=== PATIENT | female | born 1990 ===

== ENCOUNTER → 2021-08-20 | Outpatient (CLI) | payer BC ==
[2021-08-20 08:16] VITALS: RESP 18
--- NOTE | 2021-08-20 08:28 | P.PAINCN ---
History of Present Illness - Reason for Consult Consult date: 08/20/21 - History of Present Illness This is 31 years old female with 10 month history of severe low back pain, started without any initiating event, reported that the pain is constant and radiates from the low back area to the lower extremity bilaterally, but is more prominent on the right side, the pain associated with numbness and tingling sensation, he feels occasional weakness in her lower extremities , is able to ambulate freely, patient done physical therapy and home exercises without any benefit, he tried medication management and stated and oral steroids without any significant benefit, she denies any fever or night sweats she denies any change in the bowel movements or urination, intensity of the pain interfere with her quality of life and activity of daily livings. Past Medical History Past Medical History: Diabetes Mellitus Additional Past Medical History / Comment(s): STATES QUESTIONABLE DIABETES- RECENT STEROIDS AND STARTED ON METFORMIN., LOWER BACK PAIN RADIATING DOWN BOTH LEGS., PT HAS IUD (NO MENSTRUAL PERIOD IN YEARS)., STATES SHE HAD COVID AND THE PAIN STARTED AFTER THAT. History of Any Multi-Drug Resistant Organisms: None Reported Past Surgical History: Tonsillectomy Additional Past Surgical History / Comment(s): left foot fx with metal plate Past Anesthesia/Blood Transfusion Reactions: No Reported Reaction Smoking Status: Never smoker - Past Family History Father Family Medical History: Cancer Additional Family Medical History / Comment(s): pancreatic cancer Medications and Allergies Home Medications Medication Instructions Recorded Confirmed Type Ibuprofen 800 mg PO DIRECTED PRN 08/14/21 08/14/21 History metFORMIN HCL [Glucophage] 500 mg PO DAILY 08/14/21 08/14/21 History Allergies Allergy/AdvReac Type Severity Reaction Status Date / Time No Known Allergies Allergy Verified 08/14/21 15:54 Physical Exam Vitals: Vital Signs Resp 08/20/21 08:11 18 Physical Examinations : -Constitutiona : Cooperative , not in acute distress . -HEENT : nech : supple , no Lymphadenopathy , normal thyroid size . : eyes : no ptosis , no icterus, no photophobia . - neurologic : Cranial nerve II to XII intact , no focal neurological deffecit . -psychatric : alert , oriented X 3 , appropriate affect , intact judgment and insight . -Lymphatic : no Lymphadenopathy . - musculoskeltal : Lumber spine moter stegnth lower extremities ,thigh and legs 5/5 Right side , 5/5 Left side deep tendon reflexes : normal Knee Jerk , normal ankle Jerk lumber facet Loading Test =positive Right , positive Left Range of motion of the lumbar spine Flexion 30 degrees, extension 10 degrees strait leg raising test = positive at 30 degree the right side, and is positive on the left side at 45 Fabere test= positive Right , and positive LT . tenderness over the Sacroiliac joint on the Right , and Left sides . Total trigger point identified in the lumbar paraspinal muscles bilaterally Results Comments: MRI of the lumbar spine= lumbar bulging disc disease L4 5 and L5-S1 and lumbar spondylosis facet arthropathy Assessment and Plan Plan: Assessment and plan= lumbar radiculopathy. Lumbar Degenerative disc disease. Myofascial pain syndrome and lumbar area. Lumbar spondylosis with lumbar facet arthropathy. She tried physical therapy without any benefit and she tried home exercises without any benefit, he tried medication management without any significant improvement, including NSAID and oral steroid. She could benefit from lumbar epidural steroid injection at the L5 level in the right paramedian approach. She could benefit from trigger point injections and lumbar paraspinal muscles (multiple ) Time with Patient: Greater than 30 PQRS Measure Charge Sheet Measure #226: Tobacco Use: Screen & Cessation Intervention: Pt not a tobacco user Measure #111: Pneumonia Vaccination: Pneumococcal vaccine NOT administered or previously given Measure #47: Advance Care Plan: Advance care planning discussed & documented, pt chose/unable to give Measure #412: Opioid Treatment Agreement: No documentation of signed opioid treatment agreement Measure #408: Opioid Therapy Follow-up Evaluation: Patient had NO f/u eval minimum every 3 months during opioid therapy Measure #317: Preventitive Care & Scrn High Bld Press & F/U: Normal blood pressure, f/u not required Measure #128: Body Mass Index (BMI) Screening & Follow-up: BMI documented ABOVE normal parameters - f/u documented Measure #131: Pain Assessment & Follow-up: Pain positive & plan documented, Follow-up scheduled Measure #431: Unhealthy Alcohol Use Preventative Care & Scrn: Patient not identified as an unhealthy alcohol user Mode of Arrival: Ambulatory - Pain Location Lower Back Non-Pharmacological Interventions: Heat, Ice PQRS Narrative: Pain Intensity [Lower Back] 6 Scale Used Numeric (1 - 10) Hx Alcohol Use (MH) No Home Medications: Ambulatory Orders Ibuprofen 800 mg PO DIRECTED PRN 08/14/21 metFORMIN HCL [Glucophage] 500 mg PO DAILY 08/14/21
[2021-08-20 08:29] VITALS: BP 123/85; PULSE 86; TEMP 97.9
== END ==
LOC: PNWHC3 07:58
PROVIDERS: ATTEND Specialist
DX: M51.16 Intervertebral disc disorders with radiculopathy, lumbar region (principal); M47.26 Other spondylosis with radiculopathy, lumbar region; M79.18 Myalgia, other site; E11.9 Type 2 diabetes mellitus without complications; Z79.84 Long term (current) use of oral hypoglycemic drugs
CPT/HCPCS: 99202

== ENCOUNTER 2021-10-01 07:28 | Day surgery (SDC) | payer BC ==
[2021-09-29 14:16] VITALS: BMI 40.1
[2021-10-01 07:50] VITALS: TEMP 98
[2021-10-01] MEDS ORDERED: LACTATED RINGERS 1,000 ML IV ONE (08:02)
[2021-10-01] MEDS ORDERED: LIDOCAINE 1% (10MG/ML) FOR IV START INTRADERMA ONE (08:03)
[2021-10-01] MEDS ORDERED: ROPIVACAINE 5MG/ML 20ML VIAL ONE (08:05)
[2021-10-01] MEDS ORDERED: IOPAMIDOL M200 10 ML VIAL ONE (08:05)
[2021-10-01] MEDS ORDERED: methylPREDNISolone ACETATE 40 MG/ML 1 ML VIAL ONE (08:05)
[2021-10-01] MEDS ORDERED: MIDAZOLAM 2 MG/2 ML VIAL ONE (08:05)
[2021-10-01] MEDS ORDERED: .fentaNYL (PF) 50 MCG/ML AMP ONE (08:05)
[2021-10-01 08:09] LABS: Glucose,Whole Blood 195 mg/dL (75-99)
--- NOTE | 2021-10-01 08:25 | P.PCN ---
Date of Procedure: 10/01/21 Description of Procedure: Procedure: 1. L4-L5 Epidural steroid injection under fluoroscopic guidance #1 out of 3, 2. Lumbar epidurogram PREOPERATIVE DIAGNOSIS: Lumbar degenerative disc disease, and Lumbar radiculopathy. POSTOPERATIVE DIAGNOSIS: Lumbar degenerative disc disease, and Lumbar radiculop athy. SURGEON: Makayla Oliver ANESTHESIA: Local with 1% lidocaine, and IV sedation : Versed, and fentanyl EBL: None. Specimen removed: None Fluoroscopic image: saved to electronic medical records PROCEDURE INDICATION: The patient had history of Lumbar degenerative disc disease and Lumbar radiculopathy. Failed to conservative therapy. Presented for epidural steroid injection. PROCEDURE DESCRIPTION: The patient was seen and identified in the preoperative area. Risks, benefits, complications, and alternatives were discussed with the patient. The patient agreed to proceed with the procedure and signed the consent. IV was started, and vital signs were stable. Patient was taken to the procedure area, and time out was completed. The patient was placed in the prone position on procedure table and a pillow was placed under the abdomen to reduce lumbar lordosis. The lumbosacral area was prepped and draped in the usual sterile fashion. Critical pause was taken. Vital signs were closely monitored during the procedure. Using anterior-posterior fluoroscopy, the L4-L5 interlaminar space was identified, and skin and deeper tissues were localized with 1% lidocaine. Using anterior-posterior fluoroscopy, lateral fluoroscopy, and [id number] technique, a 20 gauge 3.5 Tuohy epidural needle entered the epidural space. After negative aspiration of CSF and blood with no paresthesias, 1 ml of Gtzool889 contrast dye was injected and an excellent epidurogram was seen. Again after negative aspiration of CSF and blood with no paresthesias, 10 mL of block solution was injected into the epidural space. Block solution contained 40 mg of Depo-Medrol, and 9 mL of preservative-free normal saline. Needle was withdrawn intact, skin was cleansed, and bandages were applied. COMPLICATIONS: None. ------- Pre and postop diagnosis: Myofascial pain syndrome Procedure: Trigger point injections X 4 Muscle group bilateral lumbar paraspinal Surgeon: Makayla Oliver Anesthesia: Versed, and fentanyl Complications: None Estimated blood loss: None Specimen removed: None Procedure indications: Patient had a history of myofascial pain syndrome. Patient tried conservative therapy. Came here for intervention procedure for better pain relief. Procedure description: After the lumbar epidural steroid injection, A total number of 4 - trigger point area was marked with a sterile marker. After ChloraPrep used to clean the area. Critical pause was taken. Using 25-gauge 1- 1/2 inch needle Needle entered in each market site 3 mL of block solution injected at each level. The block solution containing 12 ml of 0.5% preservative-free ropivacaine with Depo-Medrol 40 MG. Needle removed intact skin cleaned and Band-Aid applied. Patient tolerated the procedure well. DISPOSITION / PLANS: The patient was placed in a supine position and transferred to the recovery area in a stable condition for observation. Patient was discharged from the recovery room after meeting discharge criteria. Home discharge instructions given to the patient by the staff. The patient was reexamined prior to discharge. The patient will schedule a follow up in the clinic in 4 weeks.
--- NOTE | 2021-10-01 08:28 | FL ---
EXAMINATION TYPE: FL guided pain mgmt statistic DATE OF EXAM: 10/01/2021 CLINICAL HISTORY: Low back pain. TECHNIQUE: Fluoroscopy. COMPARISON: None. FINDINGS: Fluoroscopic guidance was provided during pain relief procedure performed by Dr. Oliver. A total of 5 seconds of fluoroscopic time was utilized during the procedure and 2 spot images are ac quired. Images acquired shows needle localization at the level of the lumbosacral junction. IMPRESSION: As Above.
[2021-10-01] MEDS ORDERED: LACTATED RINGERS 1,000 ML IV SCH (08:30)
[2021-10-01] MEDS ORDERED: IV FLUID CONTINUATION 700 ML IV ONE (08:31)
[2021-10-01 08:34] VITALS: RESP 16
[2021-10-01 08:41] VITALS: BP 106/73; PULSE 92
== END 2021-10-01 09:00 | disposition home or self-care (01) ==
LOC: ORPAIN 07:28
DX: M51.16 Intervertebral disc disorders with radiculopathy, lumbar region (principal); Z79.84 Long term (current) use of oral hypoglycemic drugs; E11.9 Type 2 diabetes mellitus without complications
CPT/HCPCS: 81025; 20553; 62323; J2250; J1030; J3010; Q9966; 99152

== ENCOUNTER → 2021-10-26 | Outpatient (CLI) | payer BC ==
[2021-10-26 11:20] VITALS: BP 129/88; PULSE 96; RESP 18; TEMP 98.9
--- NOTE | 2021-10-26 19:58 | P.PN ---
Subjective Progress Note Date: 10/26/21 This is follow up visit for this 31 years old female with history of severe low back pain, started without any initiating event, reported that the pain is constant and radiates from the low back area to the lower extremity bilaterally, but is more prominent on the right side, the pain associated with numbness and tingling sensation, he feels occasional weakness in her lower extremities , is able to ambulate freely, patient done physical therapy and home exercises without any benefit, he tried medication management and stated and oral steroids without any significant benefit, she denies any fever or night sweats she denies any change in the bowel movements or urination, intensity of the pain interfere with her quality of life and activity of daily livings. She is day 2. Lumbar radiculopathy and lumbar degenerative disc disease and myofascial pain syndrome lumbar area and lumbar spondylosis with lumbar facet arthropathy, recently we did a trigger point injection lumbar paraspinal muscles and in the same time- limited lumbar epidural steroid injection, patient reported that her low back pa in improved significantly for a few weeks and currently she is complaining of the same pain in the low back area, and also she is having some tingling sensation in the left hand, numbness and tingling sensation in the left hand radiated from the wrist to the hand she denies any motor or sensory deficit in the upper or lower extremity Physical Examinations : -Constitutiona : Cooperative , not in acute distress . -HEENT : nech : supple , no Lymphadenopathy , normal thyroid size . : eyes : no ptosis , no icterus, no photophobia . - neurologic : Cranial nerve II to XII intact , no focal neurological deffecit . -psychatric : alert , oriented X 3 , appropriate affect , intact judgment and insight . -Lymphatic : no Lymphadenopathy . - musculoskeltal : Normal motor strength in the upper extremity, normal sensation Lumber spine moter stegnth lower extremities ,thigh and legs 5/5 Right side , 5/5 Left side deep tendon reflexes : normal Knee Jerk , normal ankle Jerk lumber facet Loading Test =positive Right , positive Left Range of motion of the lumbar spine Flexion 30 degrees, extension 10 degrees strait leg raising test = positive at 30 degree the right side, and is positive on the left side at 45 Fabere test= positive Right , and positive LT . tenderness over the Sacroiliac joint on the Right , and Left sides . Total trigger point identified in the lumbar paraspinal muscles bilaterally Results MRI of the lumbar spine= lumbar bulging disc disease L4 5 and L5-S1 and lumbar spondylosis facet arthropathy Assessment and plan= lumbar radiculopathy. Lumbar Degenerative disc disease. Myofascial pain syndrome and lumbar area. Lumbar spondylosis with lumbar facet arthropathy. Left upper extremity carpal tunnel syndrome She tried physical therapy without any benefit and she tried home exercises without any benefit, he tried medication management without any significant improvement, including NSAID and oral steroid. She could benefit from lumbar epidural steroid injection at the L4-5 level in the right paramedian approach. She could benefit from trigger point injections and lumbar paraspinal muscles (multiple ) Patient will be referred to orthopedic surgeon for evaluation for possible carpal tunnel surgery on the left upper extremity Time with Patient: less than 30 PQRS Measure Charge Sheet Measure #226: Tobacco Use: Screen & Cessation Intervention: Pt not a tobacco user Measure #111: Pneumonia Vaccination: Pneumococcal vaccine NOT administered or previously given Measure #47: Advance Care Plan: Advance care planning discussed & documented, pt chose/unable to give Measure #412: Opioid Treatment Agreement: No documentation of signed opioid treatment agreement Measure #408: Opioid Therapy Follow-up Evaluation: Patient had NO f/u eval minimum every 3 months during opioid therapy Measure #317: Preventitive Care & Scrn High Bld Press & F/U: Normal blood pressure, f/u not required Measure #128: Body Mass Index (BMI) Screening & Follow-up: BMI documented ABOVE normal parameters - f/u documented Measure #131: Pain Assessment & Follow-up: Pain positive & plan documented, Follow-up scheduled Measure #431: Unhealthy Alcohol Use Preventative Care & Scrn: Patient not identified as an unhealthy alcohol user Mode of Arrival: Ambulatory Objective - Vital Signs Vital signs: Vital Signs Temp 98.9 F 10/26/21 10:54 Pulse 96 10/26/21 10:54 Resp 18 10/26/21 10:54 BP 129/88 10/26/21 10:54 Pulse Ox 97 10/26/21 10:54
== END ==
LOC: PNWHC3 09:59
PROVIDERS: ATTEND Specialist
DX: M51.16 Intervertebral disc disorders with radiculopathy, lumbar region (principal); M79.18 Myalgia, other site; M47.26 Other spondylosis with radiculopathy, lumbar region; G56.02 Carpal tunnel syndrome, left upper limb
CPT/HCPCS: 99211

== ENCOUNTER 2022-01-07 07:26 | Day surgery (SDC) | payer BC ==
[2022-01-06 11:35] VITALS: BMI 43.0
[2022-01-07] MEDS ORDERED: LIDOCAINE 1% (10MG/ML) FOR IV START INTRADERMA PRN (07:55)
[2022-01-07] MEDS ORDERED: LACTATED RINGERS 1,000 ML IV SCH (07:55)
[2022-01-07 08:03] VITALS: RESP 16; TEMP 97.5
[2022-01-07] MEDS ORDERED: LIDOCAINE 1% (10MG/ML) FOR IV START INTRADERMA ONE (08:10)
[2022-01-07] MEDS ORDERED: MIDAZOLAM 2 MG/2 ML VIAL ONE (08:12)
[2022-01-07] MEDS ORDERED: IOPAMIDOL M200 10 ML VIAL ONE (08:12)
[2022-01-07] MEDS ORDERED: ROPIVACAINE 5MG/ML 20ML VIAL ONE (08:12)
[2022-01-07] MEDS ORDERED: methylPREDNISolone ACETATE 80 MG/ML 1 ML VIAL ONE (08:12)
[2022-01-07] MEDS ORDERED: fentaNYL (PF) 50 MCG/ML 2 ML AMP ONE (08:12)
--- NOTE | 2022-01-07 08:33 | P.PCN ---
Date of Procedure: 01/07/22 Procedure(s) Performed: PREOPERATIVE DIAGNOSIS: 1- Lumbar Degenerative Disc Diseases 2-Lumbar spondylosis with Facet arthropathy without myelopathy. 3-lumbar radiculopathy. 4-myofascial pain syndrome lumbar area. POSTOPERATIVE DIAGNOSIS: Same as preop diagnosis. PROCEDURE 1. Lumbar epidural steroid injection under fluoroscopic guidance at the L5-S1 level. (Fluoroscopy imaging was available in radiology department) 2. Lumbar epidurogram. 3.trigger point injection lumbar paraspinal muscles 4 on the right side lumbar paraspinal muscles and 3 on the left side lumbar paraspinal muscles(total 7 trigger points injected) ANESTHESIA: Local with 1% lidocaine 3 ml and , moderate sedation with intravenous Versed 2 mg ,and fentanyle 100 Mcg EBL: Minimal PROCEDURE INDICATION: The patient with low back pain and radiculitis symptoms unresponsive to conservative treatment. Fluoroscopy was used to optimize visualization of the needle placement and to maximize safety. PROCEDURE DESCRIPTION / TECHNIQUE: The patient was seen and identified in the preoperative area. Risks, benefits, complications including but not limited to infections ,bleeding ,allergic reaction to the medications ,nerve damage and not complete pain releife , and alternatives were discussed with the patient. The patient agreed to proceed with the procedure and signed the consent. IV was started, and vital signs were stable. Patient was taken to the OR and time out was completed. The patient was placed in the prone position on procedure table and a pillow was placed under the abdomen to reduce lumbar lordosis. The lumbosacral area was prepped and draped in the usual sterile fashion.ere closely monitored during the procedure. Conscious sedation was used during the procedure to decrease patients anxiety. Vital signs was monitered during the entire procedure. Using anterior-posterior fluoroscopy, the L5-S1 interlaminar space was identified and the skin over this site was marked and then infiltrated with 1% lidocaine subcutaneously. Subsequently, a 18-gauge 6 inches long ,Tuohy epidural needle was inserted and advanced toward the epidural space using the ``Loss of resistance technique and guided by AP and lateral fluoroscopy. The correct needle position in the epidural space was verified with the injection of 2 mL of the water soluble contrast dye Isovue 200 contrast and observing an excellent epidurogram with the epidural spread of the dye, after negative aspiration for blood and CSF and in the absence of paresthesias. Again after negative aspiration, a 6 ml mixture containing 80 mg of Depo-medrol , and 2 ml of preservative free Normal Saline, and 2 ml of preservative free lidocaine 1% solution was injected and a washout of epidurogram was seen. Needle was withdrawn intac. Half and that the trigger point injection done sterile technique using 25-gauge Quincke-type spinal needle (3-1/2 inch long used) total of 4 and injected in the lumbar paraspinal muscles 4 on the right side lumbar paraspinal muscles, and 3 on the left side lumbar paraspinal muscles, each trigger point injected with ropivacaine 0.5% 2 mL, injection done after negative aspiration under was no paresthesia during the injection, and tolerated the procedure well without any complications COMPLICATIONS: None DISPOSITION / PLANS: The patient was placed in a supine position and transferred to the recovery area in a stable condition for observation. There was no evidence of lower extremity motor or sensory deficit after the procedure. Patient was discharged from the recovery room after meeting discharge criteria. Home discharge instructions were given to the patient by the staff. The patient was reexamined prior to discharge. The patient will schedule a follow up in the clinic in 2-4 weeks.
[2022-01-07] MEDS ORDERED: IV FLUID CONTINUATION 1,000 ML IV ONE ×2 (08:36)
[2022-01-07 08:40] VITALS: BP 112/76
--- NOTE | 2022-01-07 08:41 | FL ---
EXAMINATION TYPE: FL guided pain mgmt statistic DATE OF EXAM: 01/07/2022 HISTORY: Fluoroscopy time 8 seconds of fluoroscopy provided. IMPRESSION: 1. Fluoroscopy time.
[2022-01-07 08:51] VITALS: PULSE 80
== END 2022-01-07 09:04 | disposition home or self-care (01) ==
LOC: ORPAIN 07:26
PROVIDERS: ATTEND Specialist
DX: M51.16 Intervertebral disc disorders with radiculopathy, lumbar region (principal); M47.26 Other spondylosis with radiculopathy, lumbar region; M79.18 Myalgia, other site
CPT/HCPCS: 81025; 20553; 62323; J2250; J1040; J3010; Q9966; J2795; 99152

== ENCOUNTER → 2022-03-25 | Outpatient (CLI) | payer BC | LOC: PNWHC3 15:41 | PROVIDERS: ATTEND Specialist | DX: M54.50 Low back pain, unspecified (principal) | CPT/HCPCS: 99211 ==

== ENCOUNTER → 2023-01-31 | Outpatient (CLI) | payer BC ==
--- NOTE | 2023-01-31 08:16 | P.PN ---
Subjective Progress Note Date: 01/31/23 This is 33 yr old female with a history of severe and chronic LBP secondary to lumbar DDD ,and lumbar spondylosis with facet arthropathy without myelopathy presents today for evaluation. Pain level is provoked at 8 /10 in intensity, constant, localized in the lumbar spine, achy in character without shooting pain. Pain is provoked by bending, lifting. Pain is alleviated with PT x 4 wks in 2020, heat, ice, meds (Ibu), topicals, repositioning and rest. Interventional pain procedures completed include KARUNA at L5-S1 patient reported that she had no benefit from it Patient is currently on Ibu Patient denies any side effects of the medication(s), denies excessive drowsiness or sleepiness, denies suicidal ideation and reports that the current pain medication is helping to control the pain and improve activities of daily living. Patient denies any motor or sensory deficits. Patient denies any fever or night sweats, denies any change in the bowel movements or urination. Physical Examinations : -Constitutiona : Cooperative , not in acute distress . -HEENT : nech : supple , no Lymphadenopathy , normal thyroid size . : eyes : no ptosis , no icterus, no p hotophobia . - neurologic : Cranial nerve II to XII intact , no focal neurological deffecit . -psychatric : alert , oriented X 3 , appropriate affect , intact judgment and insight . -Lymphatic : no Lymphadenopathy . - musculoskeltal : Lumber spine moter stegnth lower extremities ,thigh and legs 5/5 Right side , 5/5 Left side deep tendon reflexes : normal Knee Jerk , normal ankle Jerk lumber facet Loading Test =positive Right , positive Left Range of motion of the lumbar spine Flexion 30 degrees, extension 10 degrees strait leg raising test = positive at 30 degree Fabere test= positive Right , and positive LT . Sever tenderness over the Sacroiliac joint on the Right , and Left sides Gaenslen test= positive right ,and p ositive left . Seated flexion test= positive right ,and positive Left . Distraction test= positive bilaterally [facility] showed L4 5 disc bulging/herniation and spinal canal stenosis and there is facet joint arthropathy at L5-S1 Assessment and plan: Chronic LBP secondary to lumbar DDD, spondylosis with facet arthropathy without myelopathy. Patient had lumbar epidural steroid injection at L5-S1 done recently patient had no benefit from it Patient will be a good candidate to have diagnostic medial branch block lumbar area at L4 5 and L5-S1 x2 , if she had good) then we will proceed with RFA of the medial branch lumbar area d PQRS Narrative: Hx Alcohol Use () No Home Medications: Ambulatory Orders Ibuprofen 800 mg PO DIRECTED PRN 08/14/21 levonorgestreL [Mirena] 1 each IY DIRECTED 12/08/21 - Controlled Substance Measures Is patient prescribed a controlled substance at discharge?: No
[2023-01-31 08:17] VITALS: BP 111/79; PULSE 81; RESP 18; TEMP 98
== END ==
LOC: PNWHC3 07:49
PROVIDERS: ATTEND Specialist
DX: M51.36 Other intervertebral disc degeneration, lumbar region (principal); M47.816 Spondylosis without myelopathy or radiculopathy, lumbar region; G89.29 Other chronic pain; M48.061 Spinal stenosis, lumbar region without neurogenic claudication; M51.26 Other intervertebral disc displacement, lumbar region
CPT/HCPCS: 99211

== ENCOUNTER → 2023-04-13 | Outpatient (CLI) | payer BC ==
[2023-04-13 09:21] VITALS: BP 107/75; PULSE 77; RESP 18; TEMP 97.6
--- NOTE | 2023-04-13 15:00 | P.PAINPG ---
PQRS Measure Charge Sheet Comment: A 33 yr old female with a history of severe and chronic LBP secondary to lumbar DDD and spondylosis with facet arthropathy without myelopathy presents today for evaluation s/p BL MBB L4-L5, L5-S1 #1. Pt states she experienced 90% pain relief x2 days s/p procedure. Pain level is provoked at 6 /10 in intensity, constant, localized in the lumbar spine, dull/ achy/ sharp in character w shooting towards RLE. Pain is provoked by walking for periods of 20 min or more. Pain is alleviated with PT x 2 mo in 2020, heat, ice, medications, repositioning and rest. Interventional pain procedures completed include BL MBB L3-L5 x1 Patient is currently on Ibu Patient denies any side effects of the medication(s), denies excessive drowsiness or sleepiness, denies suicidal ideation and reports that the current pain medication is helping to control the pain and improve activities of daily living. Patient denies any motor or sensory deficits. Patient denies any fever or night sweats, denies any change in the bowel movements or urination. Physical Examination: -Constitutional: Cooperative. Not in acute distress . - Neurologic: Cranial nerve II to XII intact. No focal neurological deficits. - Psychatric: Alert & oriented x 3. Matching mood & appropriate affect. Judgment and insight intact. - Musculoskeletal: Cervical spine: Muscle bulk/ tone/ strength in the bilateral upper extremities normal Vertebral body tenderness to palpation over Spurling test positive Distraction test positive Facet loading test positive TTP Thoracic spine Muscle bulk / tone/ strength in the bilateral paraspinal muscles normal Vertebral body tender to palpation over Facet loading test positive TTP Lumbar spine: Motor bulk/ tone/ strength lower extremities , thigh and legs : 5/5 Deep tendon reflexes : Normal Knee Jerk. Normal Ankle Jerk . Vertebral body tenderness to palpation over Erickson Test positive Lumbar Facet Loading Test positive over BL L4-L5, L5-S1 Straight Leg Raise: positive at 30 degrees right side/ left side Gaenslen's Test positive Sacral spine : Severe tenderness over the Sacroiliac joint: right side / left side Range of motion: Flexion of the lumbar spine <60 degrees Range of motion: Extension of the lumbar spine <20 degrees Gaenslen's Test positive right side / left side Buffy test: positive right side / left side Thigh Thrust Test positive right side / left side Sacral Thrust Test positive right side / left side Assessment and plan: Chronic LBP secondary to lumbar DDD, spondylosis with facet arthropathy without myelopathy Recommendation of BL MBB L4-L5, L5-S1 #2. Pt may need a series of injections, up until RFA, for optimal pain relief. Risks, benefits of procedure discussed and pt verbalized understanding. Admits to anticoagulant use or medical history of diabetes. Protocol for discontinuation/ continuation of medications florencio procedure discussed. Minimal anesthesia provided, if clinically indicated, consisting of Versed and Fentanyl. All questions answered. I have spent less than 30 minutes on patient care today. Dr Rashid was available by phone for the evaluation of this patient. The time was used to review the medical records including relevant urine studies and Prescription history (MAPs), review of the available imaging, evaluation and examination of the patient, coordination of care with the medical staff and if applicable referring physicians, as well as creation of the medical record PQRS Narrative: Hx Alcohol Use (MH) No Home Medications: Ambulatory Orders Ibuprofen 800 mg PO DIRECTED PRN 08/14/21 Controlled Substance Measures - Controlled Substance Measures Is patient prescribed a controlled substance at discharge?: No
== END ==
LOC: PNWHC3 07:21
PROVIDERS: ATTEND Specialist
DX: M51.37 Other intervertebral disc degeneration, lumbosacral region (principal); M47.817 Spondylosis without myelopathy or radiculopathy, lumbosacral region; G89.29 Other chronic pain
CPT/HCPCS: 99211

== ENCOUNTER → 2023-04-22 | Day surgery (SDC) | payer BC ==
[~2023-04-22] MED LIST: LACTATED RINGERS 1,000 ML IV ONE; LACTATED RINGERS 1,000 ML IV SCH; LIDOCAINE 1% (10MG/ML) FOR IV START INTRADERMA PRN; MIDAZOLAM 2 MG/2 ML VIAL ONE; ROPIVACAINE 5 MG/ML 20 ML AMPULE ONE; fentaNYL (PF) 50 MCG/ML 2 ML AMP ONE; methylPREDNISolone ACETATE 40 MG/ML 1 ML VIAL ONE
[2023-04-22 08:22] VITALS: TEMP 97
--- NOTE | 2023-04-22 09:13 | P.PCN ---
Date of Procedure: 04/22/23 Procedure(s) Performed: PREOPERATIVE DIAGNOSIS : 1- Lumbar spondylosis with Facet Arthropathy without myelopathy . 2- Lumber degenerative disc disease POSTOPERATIVE DIAGNOSIS: 1- Lumbar spondylosis with Facet Arthropathy without myelopathy . 2- Lumber degenerative disc disease PROCEDURE: Diagnostic bilateral L3 , L4 , and L5 medial branch block under fluoroscopy guidance(fluoroscopy images available in the radiology Department ) ( To target the facet joint between Bilateral L4-5 , and L5-S1 )#2nd ANESTHESIA:, Monitored anesthesia care as per anesthesia department. EBL: Minimal COMPLICATION: None PROCEDURE INDICATION: Chronic low back pain secondary to Facet arthropathy unresponsive to conservative treatment. PROCEDURE DESCRIPTION: the patient was seen and identified in the preop holding area , risks and benefits and possible complications of the procedure and alternative were discussed with the patient, and the patient agreed to proceed with the procedure and signed the consent and vital signs monitored during the procedure and fluoroscopy was used to maximize the benefit and accuracy of the needle placement, and sedation was given to decrease patient anxiety, patient was taken to the procedure room and placed in prone position vital signs monitored in the back prepped with chlorhexidine X3 then under strict sterile technique using a right oblique fluoroscopy ,the junction of the transverse process and the superior articulating process of the right L3 , L4 , and L5 vertebra which corresponding to the fluoroscopy image of the eye of the West dog on the block side for the medial branches and subsequently , after local infiltration of skin and subcu tissuies with Ropivacaine 0.5 % , one mL at each level ,then 22-gauge 5 inches long Quincke-type needles , 3 needle was used , each one of them placed at the junction of the base of the transverse process and the superior articular process at the appropriate level, and the needle was advanced until the periosteum contacted, needle placement confirmed with AP oblique and lateral view and after appropriate needle placement confirmed, and after negative aspiration for heme and CSF and there was no paresthesia 1-1/2 mL of Ropivacaine 0.5% mixed with 20 mg Depo-Medrol , then half mL injected at each level after negative aspiration the needle subsequently removed and the same procedure repeated for the left side at left side at L3 , L4 and L5 levels. At the end of the procedure and the needles removed and a bandage applied after the skin was cleaned the cleaning solution patient taken to recovery room in stable condition and monitors in the recovery room for 20-30 minutes and discharged home in stable condition after discharge criteria met and patient will follow up with the pain clinic in 2-4 weeks
[2023-04-22 09:21] VITALS: RESP 16
[2023-04-22 09:36] VITALS: BP 125/78; PULSE 75
--- NOTE | 2023-04-22 12:12 | FL ---
EXAMINATION TYPE: FL guided pain mgmt statistic DATE OF EXAM: 04/22/2023 FLUOROSCOPY Fluoroscopy time of 11.6 seconds was used during bilateral lumbar facet blocks. 4 image/s document/s the procedure. DOSE AREA PRODUCT (DAP) UGY*M,MGY*CM: 0.0476
== END ==
LOC: ORPAIN 07:42
PROVIDERS: ATTEND Specialist
DX: M51.36 Other intervertebral disc degeneration, lumbar region (principal); M47.816 Spondylosis without myelopathy or radiculopathy, lumbar region; G89.29 Other chronic pain; E66.01 Morbid (severe) obesity due to excess calories; Z79.899 Other long term (current) drug therapy; Z68.41 Body mass index [BMI] 40.0-44.9, adult
CPT/HCPCS: 81025; 64493; 64494 ×2; 99152; J2250; J1030; J3010; J2795

== ENCOUNTER → 2023-05-16 | Outpatient (CLI) | payer BC ==
[2023-05-16 08:38] VITALS: BP 123/74; PULSE 96; RESP 16
--- NOTE | 2023-05-16 14:32 | P.PAINPG ---
PQRS Measure Charge Sheet Comment: A 33 yr old female with a history of severe and chronic LBP secondary to lumbar DDD and spondylosis with facet arthropathy without myelopathy presents today for evaluation s/p BL MBB L4-L5, L5-S1 #2. Pt states she experienced 85 % pain relief x 2 hrs s/p procedure. Pain level is provoked at 7 /10 in intensity, constant, localized in the lumbar spine, achy in character w/o shooting pain Pain is provoked by walking for periods of 20 min or more. Pain is alleviated with PT x 2 mo in 2020, physician guided home exercises daily since 2020, heat, ice, medications, repositioning and rest. Interventional pain procedures completed include BL MBB L3-L5 x2 Patient is currently on Ibu Patient denies any side effects of the medication(s), denies excessive drowsiness or sleepiness, denies suicidal ideation and reports that the current pain medication is helping to control the pain and improve activities of daily living. Patient denies any motor or sensory deficits. Patient denies any fever or night sweats, denies any change in the bowel movements or urination. Physical Examination: -Constitutional: Cooperative. Not in acute distress . - Neurologic: Cranial nerve II to XII intact. No focal neurological deficits. - Psychatric: Alert & oriented x 3. Matching mood & appropriate affect. Judgment and insight intact. - Musculoskeletal: Cervical spine: Muscle bulk/ tone/ strength in the bilateral upper extremities normal Vertebral body tenderness to palpation over Spurling test positive Distraction test positive Facet loading test positive TTP Thoracic spine Muscle bulk / tone/ strength in the bilateral paraspinal muscles normal Vertebral body tender to palpation over Facet loading test positive TTP Lumbar spine: Motor bulk/ tone/ strength lower extremities , thigh and legs : 5/5 Deep tendon reflexes : Normal Knee Jerk. Normal Ankle Jerk . Vertebral body tenderness to palpation over Erickson Test positive Lumbar Facet Loading Test positive over BL L4-L5, L5-S1 Straight Leg Raise: positive at 30 degrees right side/ left side Gaenslen's Test positive Sacral spine : Severe tenderness over the Sacroiliac joint: right side / left side Range of motion: Flexion of the lumbar spine <60 degrees Range of motion: Extension of the lumbar spine <20 degrees Gaenslen's Test positive right side / left side Buffy test: positive right side / left side Thigh Thrust Test positive right side / left side Sacral Thrust Test positive right side / left side Assessment and plan: Chronic LBP secondary to lumbar DDD, spondylosis with facet arthropathy without myelopathy Recommendation of BL RFA L4-L5, L5-S1. Pt exhibited optimal pain relief w prior BL MBBs of the L3-L5. Risks, benefits of procedure discussed and pt verbalized understanding. Admits to anticoagulant use or medical history of diabetes. Protocol for discontinuation/ continuation of medications florencio procedure discussed. Minimal anesthesia provided, if clinically indicated, consisting of Versed and Fentanyl. All questions answered. I have spent less than 30 minutes on patient care today. Dr Rashid was available by phone for the evaluation of this patient. The time was used to review the medical records including relevant urine studies and Prescription history (MAPs), review of the available imaging, evaluation and examination of the patient, coordination of care with the medical staff and if applicable referring physicians, as well as creation of the medical record PQRS Narrative: Hx Alcohol Use (MH) No Home Medications: Ambulatory Orders Ibuprofen 800 mg PO DIRECTED PRN 08/14/21 Controlled Substance Measures - Controlled Substance Measures Is patient prescribed a controlled substance at discharge?: No
== END ==
LOC: PNWHC3 07:45
PROVIDERS: ATTEND Specialist
DX: M51.37 Other intervertebral disc degeneration, lumbosacral region (principal); M47.817 Spondylosis without myelopathy or radiculopathy, lumbosacral region; G89.29 Other chronic pain
CPT/HCPCS: 99211

== ENCOUNTER 2023-06-03 06:05 | Day surgery (SDC) | payer BC ==
[2023-05-27 14:50] VITALS: BMI 39.4
[2023-06-03] MEDS ORDERED: LACTATED RINGERS 1,000 ML IV ONE (06:15)
[2023-06-03] MEDS ORDERED: LACTATED RINGERS 1,000 ML IV SCH (06:17)
[2023-06-03] MEDS ORDERED: LIDOCAINE 1% (10MG/ML) FOR IV START INTRADERMA PRN (06:17)
[2023-06-03 06:27] VITALS: TEMP 97
[2023-06-03] MEDS ORDERED: fentaNYL (PF) 50 MCG/ML 2 ML AMP ONE (06:58)
[2023-06-03] MEDS ORDERED: ROPIVACAINE 5 MG/ML 20 ML AMPULE ONE (06:58)
[2023-06-03] MEDS ORDERED: MIDAZOLAM 2 MG/2 ML VIAL ONE (06:58)
[2023-06-03] MEDS ORDERED: methylPREDNISolone ACETATE 40 MG/ML 1 ML VIAL ONE (06:58)
--- NOTE | 2023-06-03 07:27 | P.PCN ---
Date of Procedure: 06/03/23 Procedure(s) Performed: PREOPERATIVE DIAGNOSIS: 1-Lumbar Spondylosis with Facet Arthropathy without myelopathy. 2- Lumber degenerative disc disease. POSTOPERATIVE DIAGNOSIS: 1- Lumbar Spondylosis with Facet Arthropathy without myelopathy. 2- Lumber degenerative disc disease. PROCEDURES : Bilateral Radiofrequency thermocoagulation, L3 , L4 , and L5 medial branch, with fluoroscopic guidance (fluoroscopy images available in the radiology department) ( to denervate the facet joint at bilateral L4-5 ,and L5- S1 levels ). ANESTHESIA: Monitored anesthesia care as per anesthesia department . EBL: Minimal PROCEDURE INDICATION: The patient with low back pain secondary to lumbar facet arthropathy who had more than 50% relief of her pain with previous diagnostic lumbar medial branch block with bupivacaine. PROCEDURE DESCRIPTION / TECHNIQUE: The patient was seen and identified in the preoperative area. Risks, benefits, complications, including but not limited to risk of infection ,bleeding , allergic reactions to the medications and no complete pain releife , and alternatives were discussed with the patient, the patient agreed to proceed with the procedure and signed the consent. IV was started. Vital signs remained stable throughout the procedure. Patient was taken to the OR and time out was completed. The patient was placed in the prone position on the procedure table. The lumber area was prepped and draped in the usual sterile fashion. . Vital signs were closely monitored during the procedure .IV sedation was used during the procedure to decrease patients anxiety. Using AP and then oblique fluoroscopy, the ``eye of the West dog corresponding to the connection between the superior and transverse articular processes of right L3, L4, and L5 were identified, marked, and localized with 1% lidocaine. Subsequently, a 18 guage 150-mm radiofrequency cannula with a 10-mm active tip was advanced guided by fluoroscopy to each of the``eyes of the West dog at right L3, L4, and L5. Each site then underwent sensory testing at 50 Hz and 0 to 1 volt and motor testing at 2.5 Hz and 0 to 3 volt with local stimulation, but no radicular symptoms down the legs. Thereafter each sites underwent radiofrequency thermocoagulation at 80 degrees celsius for 90 seconds after injecting 0.5 ml of PF Ropivacaine 1ml, then after the thermocoagulation done , 1 ml of the block solution containing Depo-Medrol 20 mg and 3 ml of Ropivacaine 0.5% was injected at the right L3 , L4 , and L5 , levels after negative aspiration of CSF and blood and with no paresthesias. Cannulas were retracted while injecting lidocaine 1% until the needle is out. The same procedure was repeated at the level of Left L3, L4, and L5 levels. At the end of the procedure, the skin was cleansed and bandages were applied. COMPLICATIONS: No acute complications. DISPOSITION / PLANS: The patient was placed in a supine position and transferred to the recovery area in a stable condition for observation and was discharged from the recovery room after meeting discharge criteria. Home discharge instructions given to the patient by the staff. The patient was reexamined prior to discharge. The patient will schedule a follow up in the [facility] in 2-4 weeks.
[2023-06-03] MEDS ORDERED: IV FLUID CONTINUATION 1,000 ML IV ONE (07:33)
[2023-06-03 07:45] VITALS: BP 103/64; PULSE 77; RESP 16
--- NOTE | 2023-06-03 08:16 | FL ---
EXAMINATION TYPE: FL guided pain mgmt statistic DATE OF EXAM: 06/03/2023 FLUOROSCOPY Fluoroscopy time of 23 seconds was used during bilateral lumbar facet radiofrequency ablation. 6 kourtney ge/s document/s the procedure. DAP [id number] mGycm2
== END 2023-06-03 08:15 | disposition home or self-care (01) ==
LOC: ORPAIN 06:05
PROVIDERS: ATTEND Specialist
DX: M51.36 Other intervertebral disc degeneration, lumbar region (principal); M47.816 Spondylosis without myelopathy or radiculopathy, lumbar region; Z79.899 Other long term (current) drug therapy
CPT/HCPCS: 81025; 64635; 64636 ×2; J2250; J1030; J3010; J2795

== ENCOUNTER → 2023-06-20 | Outpatient (CLI) | payer BC ==
[2023-06-20 08:40] VITALS: BP 116/79; PULSE 83; RESP 15; TEMP 98.1
--- NOTE | 2023-06-20 14:13 | P.PAINPG ---
PQRS Measure Charge Sheet Comment: A 33 yr old female with a history of severe and chronic LBP secondary to lumbar DDD and spondylosis with facet arthropathy without myelopathy presents today for evaluation s/p BL RFA L4-L5, L5-S1. Pt states she experienced 80 % pain relief s/p procedure. Pain level is provoked at 6 /10 in intensity, constan t, localized in the lumbar spine, achy in character w/o shooting pain. Pain is provoked by walking for periods of 20 min or more. Pain is alleviated with PT x 2 mo in 2020, physician guided home exercises daily since 2020, heat, ice, medications, repositioning and rest. Oswestry axial pain score of 9. Interventional pain procedures completed include BL RFA L3-L5 Patient is currently on Ibu Patient denies any side effects of the medication(s), denies excessive drowsiness or sleepiness, denies suicidal ideation and reports that the current pain medication is helping to control the pain and improve activities of daily living. Patient denies any motor or sensory deficits. Patient denies any fever or night sweats, denies any change in the bowel movements or urination. Physical Examination: -Constitutional: Cooperative. Not in acute distress . - Neurologic: Cranial nerve II to XII intact. No focal neurological deficits. - Psychatric: Alert & oriented x 3. Matching mood & appropriate affect. Judgment and insight intact. - Musculoskeletal: Cervical spine: Muscle bulk/ tone/ strength in the bilateral upper extremities normal Vertebral body tenderness to palpation over Spurling test positive Distraction test positive Facet loading test positive TTP Thoracic spine Muscle bulk / tone/ strength in the bilateral paraspinal muscles normal Vertebral body tender to palpation over Facet loading test positive TTP Lumbar spine: Motor bulk/ tone/ strength lower extremities , thigh and legs : 5/5 Deep tendon reflexes : Normal Knee Jerk. Normal Ankle Jerk . Vertebral body tenderness to palpation over Erickson Test positive Lumbar Facet Loading Test positive BL L5-S1 point TTP Straight Leg Raise: positive at 30 degrees right side/ left side Gaenslen's Test positive Sacral spine : Severe tenderness over the Sacroiliac joint: right side / left side Range of motion: Flexion of the lumbar spine <60 degrees Range of motion: Extension of the lumbar spine <20 degrees Gaenslen's Test positive right side / left side Buffy test: positive right side / left side Thigh Thrust Test positive right side / left side Sacral Thrust Test positive right side / left side Assessment and plan: Chronic LBP secondary to lumbar DDD, spondylosis with facet arthropathy without myelopathy Recommendation of BL iliolumbar ligament injection. May need a series of injections for optimal pain relief. Risks, benefits of procedure discussed and pt verbalized understanding. Admits to anticoagulant use or medical history of diabetes. Protocol for discontinuation/ continuation of medications florencio procedure discussed. Minimal anesthesia provided, if clinically indicated, consisting of Versed and Fentanyl. All questions answered. I have spent less than 30 minutes on patient care today. Dr Rashid was available by phone for the evaluation of this patient. The time was used to review the medical records including relevant urine studies and Prescription history (MAPs), review of the available imaging, evaluation and examination of the patient, coordination of care with the medical staff and if applicable referring physicians, as well as creation of the medical record PQRS Narrative: Hx Alcohol Use (MH) No Home Medications: Ambulatory Orders Ibuprofen 800 mg PO DIRECTED PRN 08/14/21 Controlled Substance Measures - Controlled Substance Measures Is patient prescribed a controlled substance at discharge?: No
== END ==
LOC: PNWHC3 07:45
PROVIDERS: ATTEND Specialist
DX: M51.37 Other intervertebral disc degeneration, lumbosacral region (principal); M47.817 Spondylosis without myelopathy or radiculopathy, lumbosacral region; G89.29 Other chronic pain
CPT/HCPCS: 99211

== ENCOUNTER → 2023-07-20 | Outpatient (CLI) | payer BC ==
[2023-07-20 08:52] VITALS: BP 120/82; PULSE 89; RESP 15; TEMP 98.2
--- NOTE | 2023-07-20 14:16 | P.PAINPG ---
PQRS Measure Charge Sheet Comment: A 33 yr old female with a history of severe and chronic LBP x 2-3 mo secondary to lumbar DDD and spondylosis with facet arthropathy without myelopathy presents today for evaluation. Pain level is provoked at 6 /10 in intensity, constant, localized in the lumbar spine, sharp in character w/o shooting pain. Pain is provoked by standing, walking for periods of 20 min or more or even w light palpation over the lower lumbar facets. Pain is alleviated with PT x 2 mo in 2020, physician guided home exercises daily since 2020, heat, ice, medications, repositioning and rest. Oswestry axial pain score of 16. Interventional pain procedures completed include BL RFA L3-L5 x1 Patient is currently on Ibu Patient denies any side effects of the medication(s), denies excessive drowsiness or sleepiness, denies suicidal ideation and reports that the current pain medication is helping to control the pain and improve activities of daily living. Patient denies any motor or sensory deficits. Patient denies any fever or night sweats, denies any change in the bowel movements or urination. Physical Examination: -Constitutional: Cooperative. Not in acute distress . - Neurologic: Cranial nerve II to XII intact. No focal neurological deficits. - Psychatric: Alert & oriented x 3. Matching mood & appropriate affect. J udgment and insight intact. - Musculoskeletal: Cervical spine: Muscle bulk/ tone/ strength in the bilateral upper extremities normal Vertebral body tenderness to palpation over Spurling test positive Distraction test positive Facet loading test positive TTP Thoracic spine Muscle bulk / tone/ strength in the bilateral paraspinal muscles normal Vertebral body tender to palpation over Facet loading test positive TTP Lumbar spine: Motor bulk/ tone/ strength lower extremities , thigh and legs : 5/5 Deep tendon reflexes : Normal Knee Jerk. Normal Ankle Jerk . Vertebral body tenderness to palpation over Erickson Test positive Lumbar Facet Loading Test positive Jump reflex w palpation over BL L4-L5, L5-S1 facets Straight Leg Raise: positive at 30 degrees right side/ left side Gaenslen's Test positive Sacral spine : Severe tenderness over the Sacroiliac joint: right side / left side Range of motion: Flexion of the lumbar spine <60 degrees Range of motion: Extension of the lumbar spine <20 degrees Gaenslen's Test positive right side / left side Buffy test: positive right side / left side Thigh Thrust Test positive right side / left side Sacral Thrust Test positive right side / left side Assessment and plan: Chronic LBP secondary to lumbar DDD, spondylosis with facet arthropathy without myelopathy Recommendation of BL iliolumbar ligament injections. May need a series of injections for optimal pain relief. Risks, benefits of procedure discussed and pt verbalized understanding. Admits to anticoagulant use or medical history of diabetes. Protocol for discontinuation/ continuation of medications florencio procedure discussed. Minimal anesthesia provided, if clinically indicated, consisting of Versed and Fentanyl. All questions answered. I have spent less than 30 minutes on patient care today. Dr Rashid was available by phone for the evaluation of this patient. The time was used to review the medical records including relevant urine studies and Prescription history (MAPs), review of the available imaging, evaluation and examination of the patient, coordination of care with the medical staff and if applicable referring physicians, as well as creation of the medical record PQRS Narrative: Hx Alcohol Use (MH) No Home Medications: Ambulatory Orders Ibuprofen 800 mg PO DIRECTED PRN 08/14/21 Controlled Substance Measures - Controlled Substance Measures Is patient prescribed a controlled substance at discharge?: No
== END ==
LOC: PNWHC3 07:28
PROVIDERS: ATTEND Specialist
DX: M51.37 Other intervertebral disc degeneration, lumbosacral region (principal); M47.817 Spondylosis without myelopathy or radiculopathy, lumbosacral region; G89.29 Other chronic pain
CPT/HCPCS: 99211